=== PATIENT | female | born 2000 | race Caucasian/White ===

== ENCOUNTER 2020-11-07 11:14 | Emergency (ER) | payer OTHER, SELFPAY ==
--- NOTE | ~2020-11-07 | XR_ITS ---
EXAMINATION: XR LUMBOSACRAL SPINE CLINICAL INFORMATION: Low back pain status post fall. COMPARISON: None TECHNIQUE: Three views of the lumbosacral spine. FINDINGS: The vertebral bodies and posterior elements are normal. The disc spaces are preserved and the vertebral alignment is normal. The paraspinal soft tissues are normal. XR/XR lumbar spine 2-3V IMPRESSION: Unremarkable lumbar spine.
[2020-11-07 11:49] VITALS: BP 102/60; PULSE 86; RESP 16; TEMP 36.6; O2SAT 100; BMI 20.3
--- NOTE | 2020-11-07 12:35 | ED.GENADULT ---
HPI - General Adult General Chief complaint: Back Pain/Injury Stated complaint: FALL BACK AND LEG PAIN Time Seen by Provider: 11/07/20 12:35 Source: patient Mode of arrival: ambulatory Limitations: no limitations History of Present Illness HPI narrative: Patient reports that she was walking down the stairs and caring boxes and fell and hit her lower back. Patient reports that she fell down 4 steps and stairs were carpeted. Patient also was wearing clothing. Patient denies any paresthesias, no urinary or fecal incontinence. Patient denies hitting head or LOC Onset (ago): day(s) (Yesterday) Location: back Radiation: non-radiation Severity: mild Quality: aching Pain Consistency: intermittent Related Data Previous Rx's Medication Instructions Recorded ibuprofen 600 mg tablet 600 mg PO Q8H PRN #20 tab 11/07/20 Allergies Allergy/AdvReac Type Severity Reaction Status Date / Time Penicillins [PENICILLINS] Allergy Unknown UNKNOWN Unverified 10/24/19 19:13 Review of Systems Review of Systems: Constitutional : No Weight loss, No Fever, No Chills, No Night Sweats, No Fatigue, No Malaise ENT/Mouth : No Hearing loss, No Ear Pain, No Nasal Congestion, No Sinus Pain, No Hoarseness, No sore throat, No Rhinorrhea, No Swallowing Difficulty Eyes: No Eye Pain, No Swelling, No Redness, No Foreign Body, No Discharge, No Vision Changes Cardiovascular : No Chest Pain, No SOB, No Dyspnea on Exertion, No Orthopnea, No Edema, No Palpitations Respiratory : No Cough, No Sputum, No Wheezing, No Smoke Exposure, No Dyspnea Gastrointestinal : No Nausea, No Vomiting, No Diarrhea, No Constipation, No abdominal Pain, No Hematochezia, No Melena Genitourinary : no irregular bleeding, No Dysuria, No Urinary Frequency, No Hematuria, No Urinary Incontinence, No Urgency, No Flank Pain, No Urinary Flow Changes, No Hesitancy Musculoskeletal : No joint pain, Myalgias, No Joint Swelling Skin : No Skin Lesions, No rash Neuro : No Weakness, No Numbness, No Paresthesias, No Loss of Consciousness, No Dizziness, No Headache Yes all other systems are reviewed and are negative [facility] Past Medical History Medical History (Updated 11/07/20 @ 12:58 by ROXY Urban) Asthma Hyperthyroidism Social History Social History Advance Directives: No Advance Directives Information Provided: No Patient : No Physical Exam Vital Signs: Vital Signs: Last Vital Signs Temp 97.8 F 11/07/20 11:49 Pulse 86 11/07/20 11:49 Resp 16 11/07/20 11:49 BP 102/60 11/07/20 11:49 Pulse Ox 100 11/07/20 11:49 Body Mass Index 20.3 Const: General: healthy appearing, no acute distress and well developed Nutritional Appearance: well nourished Orientation/consciousness: patient oriented x3 HENMT: Head: Yes normal to inspection, Yes normocephalic and Yes atraumatic Neck: Neck: Yes normal visual inspection, Yes full ROM and Yes trachea midline Thyroid: Thyroid normal Resp: Auscultation: clear to auscultation bilaterally Cardio: Rate: regular rate Rhythm: regular rhythm GI: Inspection: Yes normal to inspection and No distended Palpation (GI): Soft to palpation, nontender, no guarding and No hepatosplenomegaly present Auscultation: normal bowel sounds : General: Yes no CVA tenderness Back/Spine/Pelvis: Back: no CVA tenderness Cervical Spine: normal cervical lordosis Thoracic/Lumbar Spine: thoracic and lumbar spine normal to inspection Pelvis: no pain with anterior-posterior compression Skin: General skin exam: elasticity normal, turgor normal and dry skin Neuro: General: patient oriented x3 Course Course Course Narrative: 20-year-old female is here today after sustaining a fall. Patient reports that she was walking down the stairs and missed a step and fell down 4 steps. Patient reports that she hit her lower back. Patient reports she was wearing clothing and the stairs were carpeted. Lumbar x-ray ordered. Awaiting results. Exam negative for bruising or tenderness. No fecal or urinary incontinence Reevaluation(s) Reevaluation #1: X-ray negative for any acute findings. Will send patient home on ibuprofen. Patient was instructed to apply ice for the next 72 hours. Medical Decision Making Imaging Data Lumbar and spine x-ray: Attestation: I personally reviewed and interpreted this imaging study as follows: Radiologist's impression: FINDINGS: The vertebral bodies and posterior elements are normal. The disc spaces are preserved and the vertebral alignment is normal. The paraspinal soft tissues are normal. XR/XR lumbar spine 2-3V IMPRESSION: Unremarkable lumbar spine. Discharge Plan Discharge Clinical Impression: Lumbar radiculopathy Patient Disposition: Home, Self-Care Instructions: Lumbar Radiculopathy (ED) Additional Instructions: You were seen here today after sustaining a fall. Your x-ray is negative for any acute findings. Please make sure a apply ice to the area for the next 72 hours. You may also take ibuprofen for pain. Follow-up with your PCP in 2-3 days. You may return to emergency department if her symptoms will get worse or if you experience any additional concerning symptoms Prescriptions: New ibuprofen 600 mg tablet 600 mg PO Q8H PRN (Reason: pain) Qty: 20 RF: 0 Stand Alone Forms: Work/School Release Interventions: ED Discharge Assessment Last Done: 11/07/20 13:07 Discharge Date/Time: 11/07/20 13:07
== END 2020-11-07 13:07 | disposition home or self-care (01) ==
PROVIDERS: Emergency Provider Emergency Medicine
DX: M54.16 Radiculopathy, lumbar region (principal); Z79.899 Other long term (current) drug therapy
CPT/HCPCS: 72100; 99283